=== PATIENT | female | born 1965 | race Caucasian/White ===

== ENCOUNTER 2019-02-09 05:34 | Day surgery (SDC) | payer OTHER ==
[~2019-02-09] VITALS: Ht 160 cm; Wt 60.0 kg
[2019-02-09] VITALS (11 sets, daily range): BP systolic 96–133; BP diastolic 54–73; PULSE 70–100; RESP 12–38; Ht 160 cm; Wt 60.0 kg
[2019-02-09] MEDS ORDERED: ACETAMINOPHEN 500 MG TAB PO ONE (06:00)
[2019-02-09] MEDS ORDERED: BUPIVACAINE 0.25% (MPF) 30 ML INJ ONE (06:59)
--- NOTE | 2019-02-09 07:01 | PREAC ---
Date/Time of Note Date/Time of Note DATE: 02/09/19 TIME: 07:00 Anesthesia Eval and Record Evaluation Time Pre-Procedure Interview DATE: 02/09/19 TIME: 07:00 Age 53 Sex female NPO: 8 hrs Preoperative diagnosis Left upper back lipoma Planned procedure L upper back lipoma excision Past Medical History Past Medical History: Includes GI: GERD Surgery & Anesthesia Issues No known issue Meds Anticoagulation: No Beta Rony within 24 hr: No Reason Beta Rony not given: Pt. not on B-Rony No Active Prescriptions or Reported Meds Meds reviewed: Yes Allergies Coded Allergies: No Known Allergy (Unverified , 02/09/19) Allergies Reviewed: Yes Labs/Studies Labs Reviewed: Reviewed by anesthesiologist test: Negative Pre-procedure Exam Last vitals Vital Signs Date Temp Pulse Resp B/P (MAP) Pulse Ox O2 O2 Flow FiO2 Time Delivery Rate 02/09/19 98.0 100 18 129/73 99 Room Air 06:25 (91) Airway: Adequate mouth opening, Adequate thyromental dist Mallampati: Mallampati II Teeth: Normal (missing lower left molar) Lung: Normal Heart: Normal ASA Physical Status ASA physical status: 2 Emergency: None Planned Anesthetic General/MAC: ETT Pre-operative Attestations Prior to commencing anesthesia and surgery, the patient was re-evaluated, there was verification of: *The patient's identity *The results of appropriate recent lab work and preoperative vital signs *The above evaluation not changing prior to induction *Anesthetic plan, risk benefits, alternative and complications discussed with patient/family; questions answered; patient/family understands, accepts and wishes to proceed. FELA BOBBY February 09, 2019 07:01
--- NOTE | 2019-02-09 07:10 | HPN ---
Date/Time of Note Date/Time of Note DATE: 02/09/19 TIME: 07:10 Interval H&P Admission Note Pt. seen H&P reviewed: No system changes DAVID PATEL MD February 09, 2019 07:10
[2019-02-09] MEDS ORDERED: FENTAnyl 50 MCG/ML VIAL ONE (07:12)
[2019-02-09] MEDS ORDERED: ONDANSETRON 4 MG INJ ONE (07:12)
[2019-02-09] MEDS ORDERED: ROCURONIUM 50 MG INJ ONE (07:12)
[2019-02-09] MEDS ORDERED: CEFAZOLIN 1 GM INJ ONE (07:12)
[2019-02-09] MEDS ORDERED: FAMOTIDINE 20 MG INJ ONE (07:12)
[2019-02-09] MEDS ORDERED: PROPOFOL 20 ML ONE (07:12)
[2019-02-09] MEDS ORDERED: ALBUTEROL 0.083% (NEB) 2.5 MG/3 ML AMP HHN PRN (07:30)
[2019-02-09] MEDS ORDERED: FENTAnyl 50 MCG/ML VIAL IV PRN ×2 (07:30)
[2019-02-09] MEDS ORDERED: LABETALOL HCL 20MG INJ IV PRN (07:30)
[2019-02-09] MEDS ORDERED: MEPERIDINE 25 MG INJ IV PRN (07:30)
[2019-02-09] MEDS ORDERED: morphine 2 MG INJ IV PRN ×3 (07:30→08:00)
[2019-02-09] MEDS ORDERED: DIPHENHYDRAMINE 50 MG INJ IV PRN (07:30)
[2019-02-09] MEDS ORDERED: OXYCODONE/ACETAMINOPHEN (5/325) TAB PO PRN ×4 (07:30→08:00)
[2019-02-09] MEDS ORDERED: ONDANSETRON 4 MG INJ IV PRN ×2 (07:30→08:00)
[2019-02-09] MEDS ORDERED: HYDROmorphONE 1 MG/5 ML IV SYRINGE IV PRN ×3 (07:30)
[2019-02-09] MEDS ORDERED: METOCLOPRAMIDE 10 MG INJ ONE (07:34)
[2019-02-09] MEDS ORDERED: NEOSTIGMINE 3 MG/3 ML SYRINGE ONE (07:34)
[2019-02-09] MEDS ORDERED: GLYCOPYRROLATE 0.4 MG INJ ONE (07:34)
[2019-02-09] MEDS ORDERED: BUPIVACAINE 0.25% (STERILE-PAK) 30 ML INJ INJ ONE (07:52)
--- NOTE | 2019-02-09 08:02 | OPR ---
Date/Time of Note Date/Time of Note DATE: 02/09/19 TIME: 07:58 Operative Report Procedure Date: February 09, 2019 Preoperative Diagnosis 9 cm lipoma left upper back Postoperative Diagnosis 9 cm subcutaneous multilobulated lipoma left upper back (pathology pending) Operation/Procedure Performed Excision Surgeon Jalen Patel MD Nurse Esthetician None Anesthesia Type: general Anesthesiologist: NII MONAHAN MD Estimated Blood Loss: minimal Transfusion none Specimen Lipoma Grafts/Implants none Tubes/Drains None Complications none Pt Condition Post Procedure: stable Disposition: PACU Indications Enlarging and symptomatic mass Procedure Description After satisfactory general anesthesia was achieved, the patient was placed in the left lateral decubitus position and the left back was prepped and draped. An 8 cm transverse skin incision was made directly over the mass. The incision was carried down to subcutaneous tissues. The mass was a multilobulated subcutaneous lipoma. It was dissected from surrounding tissues using careful sharp, blunt and electrocautery dissection. In this fashion the mass was excised its entirety. It measured 9 cm. Additional lipomatous tissue was excised from the medial edge and submitted. Hemostasis was completed with electrocautery. The wound was infiltrated with 20 cc of 0.25% plain Marcaine. The subcu was closed with interrupted 3-0 Vicryl suture. The skin was closed with subcutaneous absorbable bozena and subcuticular 3-0 Vicryl sutures. Sponge and needle counts were reported as correct x2. JALEN PATEL MD February 09, 2019 08:02
--- NOTE | 2019-02-09 08:59 | PAC ---
Date/Time of Note Date/Time of Note DATE: 02/09/19 TIME: 08:59 Post-Anesthesia Notes Post-Anesthesia Note Last documented vital signs Vital Signs Date Temp Pulse Resp B/P (MAP) Pulse Ox O2 O2 Flow FiO2 Time Delivery Rate 02/09/19 98.0 70 38 103/63 100 Room Air 08:37 (76) 02/09/19 98.0 08:20 Activity: WNL Respiratory function: WNL Cardiovascular function: WNL Mental status: Baseline Pain reasonably controlled: Yes Hydration appropriate: Yes Nausea/Vomiting absent: No NII MONAHAN MD February 09, 2019 08:59
== END 2019-02-09 09:20 | disposition home or self-care (01) ==
LOC: EDBD 05:34 → SDS 05:34
PROVIDERS: ATTEND Surgery
DX: D17.1 Benign lipomatous neoplasm of skin and subcutaneous tissue of trunk (principal)
CPT/HCPCS: 21931; J0690; J2405; J2710; J2765; J3010; Z7610; 84703; 88304